=== PATIENT | female | born 1975 | race Caucasian/White ===

== ENCOUNTER 2017-10-17 18:39 | Emergency (ER) | payer OTHER ==
[2017-10-17 23:29] LABS: ADD MAN DIFF? NO
[2017-10-17 23:33] LABS: WHITE BLOOD COUNT 11.1 10^3/ul (4.8-10.8)
[2017-10-17 23:33] LABS: BASOPHIL # 0.1 10^3/ul (0.0-0.1); BASOPHILS % 0.8 % (0.0-2.0); EOSINOPHILS # 0.2 10^3/ul (0.0-0.5); EOSINOPHILS % 1.5 % (0.0-7.0); HEMATOCRIT 33.9 % (37.0-47.0); HEMOGLOBIN 10.5 g/dl (12.0-16.0); LYMPHOCYTES # 4.2 10^3/ul (0.8-2.9); LYMPHOCYTES % 37.8 % (15.0-51.0); MEAN CORPUSCULAR HEMOGLOBIN 22.4 pg (29.0-33.0); MEAN CORPUSCULAR VOLUME 72.4 fl (82.0-101.0); MONOCYTE # 0.8 10^3/ul (0.3-0.9); MONOCYTES % 7.4 % (0.0-11.0); NEUTROPHIL # 5.8 10^3/ul (1.6-7.5); NEUTROPHILS % 52.1 % (39.0-77.0); PLATELET COUNT 370 10^3/UL (140-415); RED BLOOD COUNT 4.68 10^6/ul (4.20-5.40); RED CELL DISTRIBUTION WIDTH 16.5 % (11.5-14.5)
[2017-10-17 23:59] LABS: ALANINE AMINOTRANSFERASE 25 IU/L (13-69); ALBUMIN 4.4 g/dl (3.3-4.9); ALBUMIN/GLOBULIN RATIO 1.18; ALKALINE PHOSPHATASE 79 IU/L (42-121); ANION GAP 14 (8-16); ASPARTATE AMINO TRANSFERASE 24 IU/L (15-46); CALCIUM 9.3 mg/dl (8.4-10.2); CARBON DIOXIDE 27 mmol/L (21-31); CHLORIDE 104 mmol/L (97-110); CREATININE 0.59 mg/dl (0.44-1.00); GLUCOSE 97 mg/dl (70-220); LIPASE 68 U/L (23-300); SODIUM 141 mmol/L (135-144); TOTAL PROTEIN 8.1 g/dl (6.1-8.1)
[2017-10-18 00:06] LABS: BLOOD UREA NITROGEN 16 mg/dl (7-20)
[2017-10-18 00:42] LABS: URINE PH (Dip) POC 5.5 (5.0-8.5)
[2017-10-18 00:42] LABS: URINE BLOOD (Dip) POC Trace-intact (NEGATIVE); URINE GLUCOSE (Dip) POC Negative (NEGATIVE); URINE KETONES (Dip) POC Negative (NEGATIVE); URINE LEUKOCYTE EST (Dip) POC Negative (NEGATIVE); URINE NITRITE (Dip) POC Negative (NEGATIVE); URINE TOTAL PROTEIN POC Negative (NEGATIVE)
== END 2017-10-18 01:14 | disposition home or self-care (01) ==
LOC: FTE 10-18 01:14
DX: K80.50 Calculus of bile duct without cholangitis or cholecystitis without obstruction (principal)
CPT/HCPCS: 36415; 74176; 76705; 80053; 81003; 83690; 85025; 99285-25

== ENCOUNTER 2017-12-13 05:43 | Day surgery (SDC) | payer OTHER ==
[2017-12-13] MEDS: BUPIVACAINE 0.25% (MPF) 30 ML INJ
[2017-12-13] MEDS ORDERED: SOD CHLORIDE 0.9% 1,000 ML IV (06:00)
[2017-12-13] MEDS ORDERED: ROPIVACAINE 0.5 % 30 ML VIAL (07:34)
[2017-12-13] MEDS ORDERED: ROCURONIUM 50 MG INJ (07:34)
[2017-12-13] MEDS ORDERED: PROPOFOL 20 ML (07:34)
[2017-12-13] MEDS ORDERED: FENTAnyl 50 MCG/ML VIAL ×2 (07:34→08:56)
[2017-12-13] MEDS ORDERED: MIDAZOLAM 1 MG/ML 2 ML INJ (07:34)
[2017-12-13] MEDS: CEFAZOLIN 1 GM/50 ML (PMX) 50 ML IVPB (07:38)
[2017-12-13] MEDS ORDERED: ONDANSETRON 4 MG INJ (08:11)
[2017-12-13] MEDS ORDERED: SUGAMMADEX SODIUM 200 MG/2 ML VIAL IV (08:11)
[2017-12-13] MEDS ORDERED: DEXAMETHASONE 4 MG/ML 1 ML INJ (08:11)
[2017-12-13] MEDS ORDERED: KETOROLAC 30 MG INJ (08:11)
[2017-12-13] MEDS ORDERED: METOCLOPRAMIDE 10 MG INJ (08:11)
[2017-12-13] MEDS ORDERED: EPHEDrine SULFATE 50 MG/5 ML SYG IV (09:00)
[2017-12-13] MEDS ORDERED: LABETALOL HCL 20MG INJ IV (09:00)
[2017-12-13] MEDS ORDERED: DIPHENHYDRAMINE 50 MG INJ IV (09:00)
[2017-12-13] MEDS ORDERED: METOCLOPRAMIDE 10 MG INJ IV (09:00)
[2017-12-13] MEDS ORDERED: OXYCODONE/ACETAMINOPHEN (5/325) TAB PO (09:00)
[2017-12-13] MEDS ORDERED: HYDROCODONE/APAP (5/325) TAB PO (09:00)
[2017-12-13] MEDS ORDERED: ONDANSETRON 4 MG INJ IV (09:00)
[2017-12-13] MEDS ORDERED: FENTAnyl 50 MCG/ML VIAL IV ×2 (09:00)
[2017-12-13] MEDS ORDERED: MEPERIDINE 25 MG INJ IV (09:00)
[2017-12-13] MEDS ORDERED: HYDROmorphONE (0.2 MG/ML) 10ML SYG IV ×3 (09:00)
[2017-12-13] MEDS: FENTAnyl 50 MCG/ML VIAL IV (09:19)
[2017-12-13] MEDS ORDERED: CEFAZOLIN 1 GM INJ (09:25)
== END 2017-12-13 10:05 | disposition home or self-care (01) ==
LOC: SDS 05:43
DX: K81.1 Chronic cholecystitis (principal); E66.9 Obesity, unspecified; Z68.41 Body mass index [BMI] 40.0-44.9, adult
CPT/HCPCS: 47562; 88304